=== PATIENT | female | born 1950 | race Caucasian/White ===

== ENCOUNTER → 2017-01-17 | Outpatient (CLI) | payer OTHER ==
--- NOTE | 2017-01-18 09:09 | MM ---
Reason for exam: screening (asymptomatic). Last mammogram was performed 1 year and 1 month ago. History: Patient is postmenopausal. Physical Findings: A clinical breast exam by your physician is recommended on an annual basis and results should be correlated with mammographic findings. MG Screening Mammo w CAD Bilateral CC and MLO view(s) were taken. Prior study comparison: December 07, 2015, bilateral MG screening mammo w CAD. November 25, 2014, bilateral MG screening mammo w CAD. There are scattered fibroglandular densities. There is no discrete abnormality. ASSESSMENT: Negative, BI-RAD 1 RECOMMENDATION: Routine screening mammogram of both breasts in 1 year.
== END ==
LOC: RADMAMWWP 07:25
PROVIDERS: ATTEND Family Medicine
DX: Z12.31 Encounter for screening mammogram for malignant neoplasm of breast (principal)

== ENCOUNTER → 2019-02-05 | Outpatient (CLI) | payer OTHER, MEDICARE ==
--- NOTE | 2019-02-06 11:36 | MM ---
Reason for exam: screening (asymptomatic). Last mammogram was performed 1 year ago. History: Patient is postmenopausal. Took hormonal contraceptives for 4 years. Physical Findings: A clinical breast exam by your physician is recommended on an annual basis and results should be correlated with mammographic findings. MG Screening Mammo w CAD Bilateral CC and MLO view(s) were taken. Prior study comparison: January 28, 2018, bilateral MG screening mammo w CAD. January 17, 2017, bilateral MG screening mammo w CAD. The breast tissue is heterogeneously dense. This may lower the sensitivity of mammography. There is no discrete abnormality. No significant changes when compared with prior studies. ASSESSMENT: Negative, BI-RAD 1 RECOMMENDATION: Routine screening mammogram of both breasts in 1 year.
== END | disposition home or self-care (01) ==
LOC: RADMAMWWP 10:10
PROVIDERS: ATTEND Family Medicine
DX: Z12.31 Encounter for screening mammogram for malignant neoplasm of breast (principal)
CPT/HCPCS: 77067

== ENCOUNTER → 2020-03-02 | Outpatient (CLI) | payer OTHER, MEDICARE ==
--- NOTE | 2020-03-04 12:05 | MM ---
Reason for exam: screening (asymptomatic). Last mammogram was performed 1 year and 1 month ago. History: Patient is postmenopausal. Took hormonal contraceptives for 4 years. Physical Findings: A clinical breast exam by your physician is recommended on an annual basis and results should be correlated with mammographic findings. MG Screening Mammo w CAD Bilateral CC and MLO view(s) were taken. Prior study comparison: February 05, 2019, bilateral MG screening mammo w CAD. January 28, 2018, bilateral MG screening mammo w CAD. There are scattered fibroglandular densities. No significant changes when compared with prior studies. ASSESSMENT: Negative, BI-RAD 1 RECOMMENDATION: Routine screening mammogram of both breasts in 1 year.
== END | disposition home or self-care (01) ==
LOC: RADMAMWWP 11:38
PROVIDERS: ATTEND Family Medicine
DX: Z12.31 Encounter for screening mammogram for malignant neoplasm of breast (principal)
CPT/HCPCS: 77067

== ENCOUNTER 2020-07-14 12:20 | Inpatient (IN) | payer OTHER, MEDICARE ==
[2020-07-14] MEDS ORDERED: SODIUM CHLORIDE 0.9% 500 ML 500 ML IV STA (12:52)
--- NOTE | 2020-07-14 12:56 | ED ---
General Adult HPI - General Chief complaint: Recheck/Abnormal Lab/Rx Stated complaint: Hypertensive, Tachycardia Time Seen by Provider: 07/14/20 12:25 Source: patient, RN notes reviewed, old records reviewed Mode of arrival: ambulatory Limitations: no limitations - History of Present Illness Initial comments: This is a 70-year-old female who states she has been having some high blood pressure she is should she went to her medical doctor and they prescribed her Lipitor and they increased her Zestoretic however today she took her Lipitor for the first time in some tingling to her face and noticed her heart rate being fast. Patient states her heart rate was upwards of 115 she was told to come to the emergency department. Patient denies any chest pain patient denies difficulty breathing first breath but she does states she can feel palpitations. Patient denies any headache patient denies numbness weakness per patient denies abdominal pain patient denies nausea vomiting diarrhea. Patient denies any swelling to legs or calf tenderness. Patient states the palpitations come and go. While I was in the room the patient's heart rate went up to 165 for about 10 seconds and then subsided and it went up to 155 and subsided quickly. - Related Data Home Medications Medication Instructions Recorded Confirmed Aspirin EC [Ecotrin Low Dose] 81 mg PO DAILY 07/14/20 07/14/20 Labetalol HCl 200 mg PO DAILY 07/14/20 07/14/20 Lisinopril-Hctz 20-25 mg 1 tab PO DAILY 07/14/20 07/14/20 [Zestoretic 20-25] Multivitamins, Thera [Multivitamin 1 tab PO DAILY 07/14/20 07/14/20 (formulary)] Allergies Allergy/AdvReac Type Severity Reaction Status Date / Time Fwpcjir-Aid-Djx Reductase AdvReac Unknown Verified 07/14/20 14:33 Inhibitor Review of Systems ROS Statement: Those systems with pertinent positive or pertinent negative responses have been documented in the HPI. ROS Other: All systems not noted in ROS Statement are negative. Past Medical History Past Medical History: Hypertension History of Any Multi-Drug Resistant Organisms: None Reported Past Surgical History: No Surgical Hx Reported Past Psychological History: No Psychological Hx Reported Smoking Status: Never smoker Past Alcohol Use History: Occasional General Exam - General Exam Comments Initial Comments: GENERAL: Patient is well-developed and well-nourished. Patient is nontoxic and well-hy drated and is in mild distress. ENT: Neck is soft and supple. No significant lymphadenopathy is noted. Oropharynx is clear. Moist mucous membranes. Neck has full range of motion without eliciting any pain. EYES: The sclera were anicteric and conjunctiva were pink and moist. Extraocular movements were intact and pupils were equal round and reactive to light. Eyelids were unremarkable. PULMONARY: Unlabored respirations. Good breath sounds bilaterally. No audible rales rhonchi or wheezing was noted. CARDIOVASCULAR: There is a regular rate and rhythm without any murmurs gallops or rubs. ABDOMEN: Soft and nontender with normal bowel sounds. SKIN: Skin is clear with no lesions or rashes and otherwise unremarkable. NEUROLOGIC: Patient is alert and oriented x3. Cranial nerves II through XII are grossly intact. Motor and sensory are also intact. Normal speech, volume and content. Symmetrical smile. MUSCULOSKELETAL: Normal extremities with adequate strength and full range of motion. No lower extremity swelling or edema. No calf tenderness. LYMPHATICS: No significant lymphadenopathy is noted PSYCHIATRIC: Normal psychiatric evaluation. Limitations: no limitations Course Vital Signs 07/14/20 07/14/20 07/14/20 12:25 14:53 15:42 Temperature 98.4 F 98.1 F 98.1 F Pulse Rate 125 H 74 76 Respiratory 20 16 16 Rate Blood Pressure 177/101 160/94 136/86 O2 Sat by Pulse 98 98 98 Oximetry Medical Decision Making - Medical Decision Making EKG shows normal sinus rhythm at 85 bpm OH interval 166 dresses 82 QT interval 364 QTC of 433 per patient's EKG shows no ST segment elevation or depression. Second EKG read G was done with the patient's heart rate was up over 150 beats a minute it showed initially sinus rhythm which converted quickly to what appears to be a possible flutter rhythm at 150 beats 260 beats a minute QRS is 78 QT interval 06 QTC is 493. Patient's EKG shows no ST segment elevation or depression. Patient's heart rate would go up to 100 5260 beats a minute and it appeared to be atrial flutter/started the patient a Cardizem drip and give the patient a 5 mg Cardizem bolus. I also placed the patient heparin. I spoke with Dr. Olivo he agreed to admit the patient admitted the patient I wrote admitting orders I consult cardiology - Lab Data Result diagrams: 07/14/20 13:31 07/14/20 13:31 Lab Results 07/14/20 07/14/20 07/14/20 Range/Units 13:31 13:31 13:31 WBC 9.2 (3.8-10.6) k/uL RBC 5.27 (3.80-5.40) m/uL Hgb 16.9 H (11.4-16.0) gm/dL Hct 48.5 H (34.0-46.0) % MCV 92.0 (80.0-100.0) fL MCH 32.0 (25.0-35.0) pg MCHC 34.8 (31.0-37.0) g/dL RDW 12.3 (11.5-15.5) % Plt Count 282 (150-450) k/uL MPV 7.6 Neutrophils % 72 % Lymphocytes % 19 % Monocytes % 6 % Eosinophils % 1 % Basophils % 1 % Neutrophils # 6.6 (1.3-7.7) k/uL Lymphocytes # 1.7 (1.0-4.8) k/uL Monocytes # 0.5 (0-1.0) k/uL Eosinophils # 0.1 (0-0.7) k/uL Basophils # 0.1 (0-0.2) k/uL PT 10.3 (9.0-12.0) sec INR 1.0 (<1.2) APTT 24.1 (22.0-30.0) sec Sodium (137-145) mmol/L Potassium (3.5-5.1) mmol/L Chloride (98-107) mmol/L Carbon Dioxide (22-30) mmol/L Anion Gap mmol/L BUN (7-17) mg/dL Creatinine (0.52-1.04) mg/dL Est GFR (CKD-EPI)AfAm (>60 ml/min/1.73 sqM) Est GFR (CKD-EPI)NonAf (>60 ml/min/1.73 sqM) Glucose (74-99) mg/dL Calcium (8.4-10.2) mg/dL Magnesium (1.6-2.3) mg/dL Total Bilirubin (0.2-1.3) mg/dL AST (14-36) U/L ALT (4-34) U/L Alkaline Phosphatase (38-126) U/L Troponin I (0.000-0.034) ng/mL Total Protein (6.3-8.2) g/dL Albumin (3.5-5.0) g/dL Urine Opiates Screen Not Detected (NotDetected) Ur Oxycodone Screen Not Detected (NotDetected) Urine Methadone Screen Not Detected (NotDetected) Ur Propoxyphene Screen Not Detected (NotDetected) Ur Barbiturates Screen Not Detected (NotDetected) U Tricyclic Antidepress Not Detected (NotDetected) Ur Phencyclidine Scrn Not Detected (NotDetected) Ur Amphetamines Screen Not Detected (NotDetected) U Methamphetamines Scrn Not Detected (NotDetected) U Benzodiazepines Scrn Not Detected (NotDetected) Urine Cocaine Screen Not Detected (NotDetected) U Marijuana (THC) Screen Not Detected (NotDetected) 07/14/20 07/14/20 Range/Units 13:31 13:31 WBC (3.8-10.6) k/uL RBC (3.80-5.40) m/uL Hgb (11.4-16.0) gm/dL Hct (34.0-46.0) % MCV (80.0-100.0) fL MCH (25.0-35.0) pg MCHC (31.0-37.0) g/dL RDW (11.5-15.5) % Plt Count (150-450) k/uL MPV Neutrophils % % Lymphocytes % % Monocytes % % Eosinophils % % Basophils % % Neutrophils # (1.3-7.7) k/uL Lymphocytes # (1.0-4.8) k/uL Monocytes # (0-1.0) k/uL Eosinophils # (0-0.7) k/uL Basophils # (0-0.2) k/uL PT (9.0-12.0) sec INR (<1.2) APTT (22.0-30.0) sec Sodium 139 (137-145) mmol/L Potassium 4.0 (3.5-5.1) mmol/L Chloride 102 (98-107) mmol/L Carbon Dioxide 27 (22-30) mmol/L Anion Gap 10 mmol/L BUN 20 H (7-17) mg/dL Creatinine 0.94 (0.52-1.04) mg/dL Est GFR (CKD-EPI)AfAm 72 (>60 ml/min/1.73 sqM) Est GFR (CKD-EPI)NonAf 63 (>60 ml/min/1.73 sqM) Glucose 113 H (74-99) mg/dL Calcium 10.5 H (8.4-10.2) mg/dL Magnesium 1.9 (1.6-2.3) mg/dL Total Bilirubin 0.5 (0.2-1.3) mg/dL AST 29 (14-36) U/L ALT 32 (4-34) U/L Alkaline Phosphatase 111 (38-126) U/L Troponin I <0.012 (0.000-0.034) ng/mL Total Protein 8.2 (6.3-8.2) g/dL Albumin 4.9 (3.5-5.0) g/dL Urine Opiates Screen (NotDetected) Ur Oxycodone Screen (NotDetected) Urine Methadone Screen (NotDetected) Ur Propoxyphene Screen (NotDetected) Ur Barbiturates Screen (NotDetected) U Tricyclic Antidepress (NotDetected) Ur Phencyclidine Scrn (NotDetected) Ur Amphetamines Screen (NotDetected) U Methamphetamines Scrn (NotDetected) U Benzodiazepines Scrn (NotDetected) Urine Cocaine Screen (NotDetected) U Marijuana (THC) Screen (NotDetected) Critical Care Time Critical Care Time: Yes Total Critical Care Time: 35 Disposition Clinical Impression: Atrial flutter with rapid ventricular response Disposition: ADMITTED IP TO THIS HOSP Referrals: Daryn Poole MD [Primary Care Provider] - 1-2 days Time of Disposition: 14:35
[2020-07-14 13:46] LABS: Basophils # (A) 0.1 k/uL (0-0.2); Basophils % (A) 1 %; Eosinophils # (A) 0.1 k/uL (0-0.7); Eosinophils % (A) 1 %; HCT 48.5 % (34.0-46.0); HGB 16.9 gm/dL (11.4-16.0); Lymphocytes # (A) 1.7 k/uL (1.0-4.8); Lymphocytes % (A) 19 %; MCHC 34.8 g/dL (31.0-37.0); Mean Platelet Volume 7.6; Monocytes # (A) 0.5 k/uL (0-1.0); Monocytes % (A) 6 %; Neutrophils # (A) 6.6 k/uL (1.3-7.7); Neutrophils % (A) 72 %; Platelet Count 282 k/uL (150-450); RBC 5.27 m/uL (3.80-5.40); RDW 12.3 % (11.5-15.5); WBC 9.2 k/uL (3.8-10.6)
[2020-07-14] MEDS ORDERED: DILTIAZEM DRIP BOLUS FROM BAG 1 MG SOLN IV ONE (13:46)
--- NOTE | 2020-07-14 13:51 | XR ---
EXAMINATION TYPE: XR chest 2V DATE OF EXAM: 07/14/2020 COMPARISON: NONE HISTORY: Dysrhythmia. TECHNIQUE: Frontal and lateral views of the chest are obtained. FINDINGS: There is mild chronic parenchymal changes without suspicious focal air space opacity, pleu ral effusion, or pneumothorax seen. The cardiac silhouette size is within normal limits with atheros clerotic change in aortic knob. Slight scoliotic curvature with multilevel spurring in the spine. Ove rlying EKG leads. IMPRESSION: Chronic changes without acute pulmonary process.
[2020-07-14 13:56] LABS: Albumin 4.9 g/dL (3.5-5.0); Calcium 10.5 mg/dL (8.4-10.2); Magnesium 1.9 mg/dL (1.6-2.3); Total Bilirubin 0.5 mg/dL (0.2-1.3); Total Protein 8.2 g/dL (6.3-8.2)
[2020-07-14 13:58] LABS: Partial Thromboplastin Time 24.1 sec (22.0-30.0); Prothrombin Time 10.3 sec (9.0-12.0)
[2020-07-14] MEDS ORDERED: DILTIAZEM 125 MG in SODIUM CHLORIDE 0.9% 100 ML IV SCH (14:00)
[2020-07-14 14:10] LABS: Amphetamine Screen,Urine Not Detected (NotDetected); Barbiturate Screen,Urine Not Detected (NotDetected); Benzodiazepines Screen,Urine Not Detected (NotDetected); Cocaine Screen,Urine Not Detected (NotDetected); Methadone Screen, Urine Not Detected (NotDetected); Opiate Screen,Urine Not Detected (NotDetected); Oxycodone Screen, Urine Not Detected (NotDetected); Phencyclidine Screen,Urine Not Detected (NotDetected); Tricyclic Antidepressant,Urine Not Detected (NotDetected); Urn Cannabinoid Scrn Not Detected (NotDetected)
[2020-07-14] MEDS ORDERED: HEPARIN SODIUM,PORCINE 5,000 UNIT/ML 1 ML VIAL IV ONE (14:36)
[2020-07-14] MEDS ORDERED: HEPARIN SOD,PORK IN 0.45% NACL 25,000 UNIT in 0.45% NACL 1 250ML.BAG IV SCH (14:45)
[2020-07-14 14:54] VITALS: RESP 16
[2020-07-14] MEDS ORDERED: NITROGLYCERIN SL TABS 0.4 MG TAB SUBLINGUAL PRN (16:37)
[2020-07-14] MEDS ORDERED: hydrALAZINE HCL 50 MG TAB PO STA (19:53)
[2020-07-14] MEDS ORDERED: LABETALOL 200 MG TAB PO STA (19:54)
[2020-07-14] MEDS: LISINOPRIL-HCTZ 20-25 MG 1 EACH TAB PO SCH (20:11)
[2020-07-14] MEDS ORDERED: CALCIUM CARBONATE 500 MG CHEWABLE PO PRN (23:51)
--- NOTE | 2020-07-15 00:07 | P.HPIM ---
History of Present Illness H&P Date: 07/14/20 The patient is a 62-year-old female with a PMH of hypertension and hyperlipidemia who presented to the emergency room due to palpitations. Patient reports that she had recently been seeing her primary care physician due to her uncontrolled blood pressure and that her lisinopril hydrochlorothiazide combination was dose doubled and she was also started on Lipitor. Patient notes that she took her first dose Lipitor this morning and roughly an hour later developed palpitations, facial paresthesias, and hyperventilation. The patient notes that it may have been a panic attack. She subsequently called her PMD who advised her to go to the emergency room. The patient reports that she returned to baseline shortly after and had no further symptoms. The patient does note a long-standing history of intermittent palpitations which were always self- limited. No significant family history of palpitations. She denied chest pain, shortness of breath or fever, chills, cough, nausea, vomiting, abdominal pain, diarrhea, dizziness, weakness, numbness, tingling. She underwent an extensive evaluation in the emergency room with an EKG showing a flutter at 156 bpm with chest x-ray without acute abnormalities. Laboratory evaluation revealed a hemoglobin of 16.9, troponin less than 0.02, BUN 20, creatinine 0.94, glucose 113, calcium 10.5, U tox unremarkable, and a Coronavirus PCR negative. The p atient was started on heparin and Cardizem infusions and was admitted to the medicine service for further management including cardiology evaluation. Review of Systems Pertinent positives and negatives as discussed in HPI, a complete review of systems was performed and all other systems are negative. Past Medical History Past Medical History: Hypertension History of Any Multi-Drug Resistant Organisms: None Reported Past Surgical History: No Surgical Hx Reported Past Anesthesia/Blood Transfusion Reactions: Unable to Obtain Additional Past Anesthesia/Blood Transfusion Reaction / Comment(s): never had surgical procedures Past Psychological History: No Psychological Hx Reported Smoking Status: Never smoker Past Alcohol Use History: Occasional - Past Family History Father Family Medical History: Myocardial Infarction (NH) Mother Family Medical History: Myocardial Infarction (NH) Medications and Allergies Home Medications Medication Instructions Recorded Confirmed Type Aspirin EC [Ecotrin Low Dose] 81 mg PO DAILY 07/14/20 07/14/20 History Labetalol HCl 200 mg PO DAILY 07/14/20 07/14/20 History Lisinopril-Hctz 20-25 mg 1 tab PO DAILY 07/14/20 07/14/20 History [Zestoretic 20-25] Multivitamins, Thera [Multivitamin 1 tab PO DAILY 07/14/20 07/14/20 History (formulary)] Allergies Allergy/AdvReac Type Severity Reaction Status Date / Time Mzfxjsa-Wun-Rjd Reductase AdvReac Unknown Verified 07/14/20 14:33 Inhibitor Physical Exam Vitals: Vital Signs Temp Pulse Pulse Resp BP BP Pulse Ox 07/14/20 21:15 105/63 07/14/20 20:00 97.9 F 78 16 149/98 96 07/14/20 19:14 80 189/76 07/14/20 17:57 97.4 F L 75 16 165/100 98 07/14/20 17:34 98.1 F 73 16 127/84 98 07/14/20 15:42 98.1 F 76 16 136/86 98 07/14/20 14:53 98.1 F 74 16 160/94 98 07/14/20 12:25 98.4 F 125 H 20 177/101 98 Intake and Output 07/14/20 07/14/20 07/15/20 14:59 22:59 06:59 Other: Voiding Method Toilet # Voids 1 Weight 86.183 kg 86.183 kg General: non toxic, no distress, appears at stated age, obese Derm: no unusual rashes/lesions no unusual ecchymoses, warm, dry Head: atraumatic, normocephalic, symmetric Eyes: EOMI, no lid lag, anicteric sclera, pupils equal round reactive to light ENT: Nose and ears atraumatic, no thrush, no pharyngeal erythema Neck: No thyromegaly, no cervical lymphadenopathy, trachea midline, supple Mouth: no lip lesion, mucus membranes moist Cardiovascular: S1S2 reg, no murmur, positive posterior tibial pulse bilateral, no edema, capillary refill less than 2 seconds Lungs: CTA bilateral, no rhonchi, no rales , no accessory muscle use Abdominal: soft, nontender to palpation, no guarding, no appreciable organomegaly, normal bowel sounds Ext: no gross muscle atrophy, muscle strength 5 out of 5 in all 4 extremities grossly, no contractures, Neuro: CN II-XI grossly intact, light touch intact all 4 extremities, finger to nose within normal limits, Psych: Alert, oriented, appropriate affect Results CBC & Chem 7: 07/14/20 13:31 07/14/20 13:31 Labs: Abnormal Lab Results - Last 24 Hours (Table) 07/14/20 07/14/20 07/14/20 Range/Units 13:31 13:31 20:47 Hgb 16.9 H (11.4-16.0) gm/dL Hct 48.5 H (34.0-46.0) % APTT 46.4 H (22.0-30.0) sec BUN 20 H (7-17) mg/dL Glucose 113 H (74-99) mg/dL Calcium 10.5 H (8.4-10.2) mg/dL Assessment and Plan Plan: Newly diagnosed Paroxysmal A. fib -Continue with Cardizem and heparin infusion -Echocardiogram -Cardiology consult -Cardiac monitoring -Check TSH -Patient will need insurance authorization for oral anticoagulant Facial tingling, palpitations following statin use -Likely A. fib along with possible panic attack -Low suspicion for true allergic reaction -Hold Statin for now pending cardio eval Uncontrolled hypertension -Continue with home medications for now since patient never took her labetalol DVT prophylaxis -Heparin infusion The patient is admitted with an anticipated greater than 2 midnight stay for evaluation of Afib CODE STATUS: Full Code Discussed with: Patient Anticipated discharge date: 2-[address]: Home A total of 35 minutes was spent on the care of this complex patient more than 50% of the time was spent in counseling and care coordination.
[2020-07-15] MEDS ORDERED: ASPIRIN 325 MG TAB PO SCH (09:00)
[2020-07-15] MEDS ORDERED: LABETALOL 200 MG TAB PO SCH (09:00)
[2020-07-15] MEDS ORDERED: METOPROLOL TARTRATE 25 MG TAB PO SCH (09:15)
[2020-07-15] MEDS ORDERED: LISINOPRIL-HCTZ 10-12.5 MG 1 EACH TAB PO SCH (09:15)
[2020-07-15] MEDS: LISINOPRIL-HCTZ 20-25 MG 1 EACH TAB PO SCH (09:29)
--- NOTE | 2020-07-15 10:04 | P.CRDCN ---
History of Present Illness History of present illness: HISTORY OF PRESENTING ILLNESS This is a pleasant 70-year-old female past medical history significant for hypertension. She denies prior history of coronary artery disease and does not follow in the office with a physician/allergy/immunology. We have been asked to see in consultation for atrial fibrillation. She has been following with her primary care physician for the previous one week secondary to uncontrolled hypertension. She had been on lisinopril 10 mg for approximately 10 years. She was at the ENT and blood pressure was noted to be 170/100. She followed up with her PCP and her dose of lisinopril was increased. She continued to have intermittent episodes of a full sensation in her head and her blood pressure continued to be elevated at home prompting her to go to urgent care. While at urgent care she was having episodes of palpitations and tachycardia. Her lisinopril was adjusted further by adding hydrochlorothiazide and she was added on labetalol. At that point it was recommended she come to the hospital for further evaluation. Upon arrival to the emergency department she was noted to be hypertensive at 177/101. Initial EKG revealed sinus mechanism with heart rate of 85. Subsequently thereafter she had an episode of tachycardia that was captured on an EKG with heart rate briefly in the 150s. 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 She was initiated on IV heparin and IV Cardizem. Through the night she had episodes of bradycardia and hypotension. Cardizem infusion was discontinued. Currently blood pressure is 122/71 heart rate 67 afebrile maintaining oxygen saturation on room air. She denies having episodes of chest discomfort, shortness of breath or dizziness. She is currently sitting up resting comfortably in bed in no acute distress. She is tearful as she states her is currently out of town and this does cause her severe anxiety being home alone. Chest x-ray is negative for an acute cardiopulmonary process. Laboratory data reviewed, WBC 9.2, hemoglobin 16.9, platelets 282, sodium 139, potassium 4.0, creatinine 0.94, magnesium 1.9, cardiac enzymes negative 3, TSH 4.54, LDL 147, HDL 47 and total cholesterol 214. REVIEW OF SYSTEMS At the time of my exam: CONSTITUTIONAL: Denies fever or chills. CARDIOVASCULAR: Denies chest pain, shortness of breath, orthopnea, PND or palpitations. RESPIRATORY: Denies cough. GASTROINTESTINAL: Denies abdominal pain, diarrhea, constipation, nausea or vomiting. MUSCULOSKELETAL: Denies myalgias. NEUROLOGIC: Denies numbness, tingling, headacbe or weakness. ENDOCRINE: Denies fatigue, weight change, polydipsia or polyurina. GENITOURINARY: Denies burning, hematuria or urgency with micturation. HEMATOLOGIC: Denies history of anemia or bleeding. PHYSICAL EXAMINATION Blood pressure 122/71 heart rate 67 afebrile and maintaining oxygen saturation on room air. CONSTITUTIONAL: No apparent distress. HEENT: Head is normocephalic. Pupils are equal, round. Sclerae anicteric. Mucous membranes of the mouth are moist. No JVD. No carotid bruit. CHEST EXAMINATION: Lungs are clear to auscultation. No chest wall tenderness is noted on palpation or with deep breathing. HEART EXAMINATION: Regular rate and rhythm. S1, S2 heard. No murmurs, gallops or rub. ABDOMEN: Soft, nontender. Positive bowel sounds. EXTREMITIES: 2+ peripheral pulses, no lower extremity edema and no calf tenderness. NEUROLOGIC EXAMINATION: Patient is awake, alert and oriented x3. 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 PLAN EKG and telemetry tracings reviewed, there is no evidence of atrial fibrillation. EKG from the emergency department reveals AV node reentry sinus tachycardia. Discontinue heparin infusion. Discontinue labetalol. Initiate Lopressor 25 mg twice a day. Adjust lisinopril to 10 mg daily with hydrochlorothiazide 12.5 mg daily. Further blood pressure management and adjustments can be made in the outpatient setting. When she follows Dr. Jacques in the office he can consider outpatient event monitoring if she continues to have ongoing palpitations. Echocardiogram has been ordered and will be reviewed. Thank you kindly for this consultation. Nurse Practitioner note has been reviewed, I agree with a documented findings and plan of care. Patient was seen and examined. Past Medical History Past Medical History: Hypertension History of Any Multi-Drug Resistant Organisms: None Reported Past Surgical History: No Surgical Hx Reported Past Anesthesia/Blood Transfusion Reactions: Unable to Obtain Additional Past Anesthesia/Blood Transfusion Reaction / Comment(s): never had surgical procedures Past Psychological History: No Psychological Hx Reported Smoking Status: Never smoker Past Alcohol Use History: Occasional - Past Family History Father Family Medical History: Myocardial Infarction ([place]) Mother Family Medical History: Myocardial Infarction ([place]) Medications and Allergies Home Medications Medication Instructions Recorded Confirmed Type Aspirin EC [Ecotrin Low Dose] 81 mg PO DAILY 07/14/20 07/14/20 History Labetalol HCl 200 mg PO DAILY 07/14/20 07/14/20 History Lisinopril-Hctz 20-25 mg 1 tab PO DAILY 07/14/20 07/14/20 History [Zestoretic 20-25] Multivitamins, Thera [Multivitamin 1 tab PO DAILY 07/14/20 07/14/20 History (formulary)] Allergies Allergy/AdvReac Type Severity Reaction Status Date / Time Earwpty-Vqb-Rrp Reductase AdvReac Unknown Verified 07/14/20 14:33 Inhibitor Physical Exam Vitals: Vital Signs Temp Pulse Pulse Resp BP BP Pulse Ox 07/15/20 08:00 98.7 F 67 16 122/71 96 07/15/20 03:44 98.0 F 57 L 16 98/55 97 07/15/20 02:00 16 07/15/20 00:00 98.1 F 62 16 107/63 97 07/14/20 21:15 105/63 07/14/20 20:00 97.9 F 78 16 149/98 96 07/14/20 19:14 80 189/76 07/14/20 17:57 97.4 F L 75 16 165/100 98 07/14/20 17:34 98.1 F 73 16 127/84 98 07/14/20 15:42 98.1 F 76 16 136/86 98 07/14/20 14:53 98.1 F 74 16 160/94 98 07/14/20 12:25 98.4 F 125 H 20 177/101 98 Intake and Output 07/14/20 07/15/20 07/15/20 22:59 06:59 14:59 Intake Total 63.25 Balance 63.25 Intake: Intake, IV Titration 63.25 Amount Diltiazem 125 mg In 63.25 Sodium Chloride 0.9% 100 ml @ 5 MG/HR 5 mls/hr IV .Q24H [facility] Rx#:[id number] Other: Voiding Method Toilet Toilet # Voids 1 2 Weight 86.183 kg 85.9 kg Results 07/14/20 13:31 07/14/20 13:31 Cardiac Enzymes 07/14/20 07/14/20 07/14/20 Range/Units 13:31 13:31 17:37 AST 29 (14-36) U/L Troponin I <0.012 <0.012 (0.000-0.034) ng/mL 07/14/20 Range/Units 20:47 AST (14-36) U/L Troponin I <0.012 (0.000-0.034) ng/mL Coagulation 07/14/20 07/14/20 07/15/20 Range/Units 13:31 20:47 06:46 PT 10.3 (9.0-12.0) sec APTT 24.1 46.4 H 60.6 H (22.0-30.0) sec Lipids 07/15/20 Range/Units 06:46 Triglycerides 98 (<150) mg/dL Cholesterol 214 H (<200) mg/dL HDL Cholesterol 47 (40-60) mg/dL CBC 07/14/20 Range/Units 13:31 WBC 9.2 (3.8-10.6) k/uL RBC 5.27 (3.80-5.40) m/uL Hgb 16.9 H (11.4-16.0) gm/dL Hct 48.5 H (34.0-46.0) % Plt Count 282 (150-450) k/uL Comprehensive Metabolic Panel 07/14/20 Range/Units 13:31 Sodium 139 (137-145) mmol/L Potassium 4.0 (3.5-5.1) mmol/L Chloride 102 (98-107) mmol/L Carbon Dioxide 27 (22-30) mmol/L BUN 20 H (7-17) mg/dL Creatinine 0.94 (0.52-1.04) mg/dL Glucose 113 H (74-99) mg/dL Calcium 10.5 H (8.4-10.2) mg/dL AST 29 (14-36) U/L ALT 32 (4-34) U/L Alkaline Phosphatase 111 (38-126) U/L Total Protein 8.2 (6.3-8.2) g/dL Albumin 4.9 (3.5-5.0) g/dL Current Medications Generic Name Dose Route Start Last Admin Trade Name Freq PRN Reason Stop Dose Admin Aspirin 81 mg 07/16/20 09:00 Aspirin 81 Mg PO DAILY [facility] Calcium Carbonate/Glycine 1,000 mg 07/14/20 23:51 07/15/20 00:01 Calcium Carbonate 500 Mg Chewable PO 1,000 mg TID PRN Administration Heartburn Lisinopril/HCTZ 1 each 07/15/20 09:15 Lisinopril-Hctz 10-12.5 Mg 1 Each Tab PO DAILY [facility] Metoprolol Tartrate 25 mg 07/15/20 09:15 Metoprolol Tartrate 25 Mg Tab PO BID [facility] Nitroglycerin 0.4 mg 07/14/20 16:37 Nitroglycerin Sl Tabs 0.4 Mg Tab SUBLINGUAL Q5M PRN Chest Pain Intake and Output 07/14/20 07/15/20 07/15/20 22:59 06:59 14:59 Intake Total 63.25 Balance 63.25 Intake: Intake, IV Titration 63.25 Amount Diltiazem 125 mg In 63.25 Sodium Chloride 0.9% 100 ml @ 5 MG/HR 5 mls/hr IV .Q24H [facility] Rx#:[id number] Other: Voiding Method Toilet Toilet # Voids 1 2 Weight 86.183 kg 85.9 kg 07/14/20 13:31 07/14/20 13:31
[2020-07-15 11:03] VITALS: BP 117/58; PULSE 65; TEMP 98
--- NOTE | 2020-07-15 13:54 | P.DS ---
Providers Date of admission: 07/14/20 16:38 Expected date of discharge: 07/15/20 Attending physician: Kandi Hunter DO Consults: 07/14/20 16:38 Consult Physician Urgent Consulting Provider: [facility] Consult Reason/Comments: A. fib with rapid ventricular response Do you want consulting provider notified?: Yes Primary care physician: Daryn Poole MD Hospital Course: This is a 70-year-old female with past medical history significant for essential hypertension who presented to the emergency room with palpitation. Patient was evaluated in the ER and was thought to have atrial fibrillation with rapid ventricular response. Heart rate was up to 150. Patient was started on IV Cardizem and IV heparin drip and admitted to the hospital for observation. She was seen and evaluated by cardiology. Twelve-lead EKG and telemetry rhythm strips reviewed by cardiology and her rhythm was deemed to be AV mustapha reentry tachycardia and not A. fib. Patient was started on metoprolol and her heart rate was well controlled. Echocardiogram done and reviewed by cardiology was reported normal to me. Thyroid function test was normal. She was cleared by cardiology for discharge home. Her lisinopril/hydrochlorothiazide dose was adjusted to 10/12.5 mg daily to avoid hypotension. She will be discharged home in a stable condition. General: The patient is awake and alert, in no distress Eye: there is normal conjunctiva bilaterally. Neck: The neck is supple, there is no JVD. Cardiovascular: Normal S1-S2, no S3-S4, no murmurs. Respiratory: Lungs clear to auscultation bilaterally Gastrointestinal: Abdomen is soft, nontender Musculoskeletal: There is no pedal edema. Neurological:. Speech is normal. Skin: Skin is warm and dry Patient will be discharged home in a stable condition. For further details about this hospitalization please refer to the electronic chart. Time spent on discharge > 30 minutes including counseling and coordination of care Plan - Discharge Summary Discharge Rx Participant: Yes New Discharge Prescriptions: New Metoprolol Tartrate [Lopressor] 25 mg PO BID #180 tab Lisinopril-Hctz 10-12.5 mg [Zestoretic 10-12.5] 1 each PO DAILY #90 tab Continue Aspirin EC [Ecotrin Low Dose] 81 mg PO DAILY Multivitamins, Thera [Multivitamin (formulary)] 1 tab PO DAILY Discontinued Labetalol HCl 200 mg PO DAILY Lisinopril-Hctz 20-25 mg [Zestoretic 20-25] 1 tab PO DAILY Discharge Medication List Aspirin EC [Ecotrin Low Dose] 81 mg PO DAILY 07/14/20 [History] Multivitamins, Thera [Multivitamin (formulary)] 1 tab PO DAILY 07/14/20 [History] Lisinopril-Hctz 10-12.5 mg [Zestoretic 10-12.5] 1 each PO DAILY #90 tab 07/15/20 [Rx] Metoprolol Tartrate [Lopressor] 25 mg PO BID #180 tab 07/15/20 [Rx] Follow up Appointment(s)/Referral(s): Collette Jacques MD [STAFF PHYSICIAN] - 2 Weeks (Patient requesting to call & schedule own appointment. ) Daryn Poole MD [Primary Care Provider] - 07/19/20 2:45 pm Patient Instructions/Handouts: Atrial Tachycardia (DC) Discharge Disposition: HOME SELF-CARE
--- NOTE | 2020-07-15 14:33 | ECHOF ---
Referral Reason:Afib MEASUREMENTS -------- HEIGHT: 162.6 cm WEIGHT: 86.2 kg BP: 98/55 RVIDd: 2.7 cm (< 3.3) IVSd: 1.2 cm (0.6 - 1.1) LVIDd: 3.8 cm (3.9 - 5.3) LVPWd: 1.1 cm (0.6 - 1.1) LAESV Index (A-L): 14.10 ml/m Ao Diam: 2.3 cm (2.0 - 3.7) AV Cusp: 1.5 cm (1.5 - 2.6) MV EXCURSION: 17.002 mm (> 18.000) MV EF SLOPE: 79 mm/s (70 - 150) EPSS: 0.3 cm MV E Shun: 0.81 m/s MV DecT: 279 ms MV A Shun: 1.03 m/s MV E/A Ratio: 0.79 FINDINGS -------- Sinus rhythm. This was a technically adequate study. The left ventricular size is normal. There is borderline concentric left ventricular hypertrophy. Overall left ventricular systolic function is normal with, an EF between 55 - 60 %. The right ventricle is normal in size. Normal LA size by volume 22+/-6 ml/m2. The right atrial size is normal. Interatrial and interventricular septum intact. The aortic valve is trileaflet, and appears structurally normal. No aortic stenosis or regurgitation. The mitral valve is normal. There is trace to mild mitral regurgitation. The tricuspid valve appears structurally normal. Trace tricuspid regurgitation present. There is no pulmonic regurgitation present. The aortic root size is normal. Normal inferior vena cava with normal inspiratory collapse consistent with estimated right atrial pre ssure of 5 mmHg. There is no pericardial effusion. CONCLUSIONS -------- 1. There is borderline concentric left ventricular hypertrophy. 2. Overall left ventricular systolic function is normal with, an EF between 55 - 60 %. 3. The right ventricle is normal in size. 4. Normal LA size by volume 22+/-6 ml/m2. 5. The aortic valve is trileaflet, and appears structurally normal. No aortic stenosis or regurgitati on. 6. There is trace to mild mitral regurgitation. 7. Trace tricuspid regurgitation present. 8. There is no pericardial effusion. INSOLE PRESSER: Gabbi Butt RDCS
[2020-07-16] MEDS ORDERED: ASPIRIN 81 MG PO SCH (09:00)
== END 2020-07-15 14:40 | disposition home or self-care (01) | DRG 310 ==
LOC: EC 12:20 → 3SCARD 16:38
PROVIDERS: ADMIT Internal Medicine; ATTEND Internal Medicine
DX: I47.1 Supraventricular tachycardia (principal); I10 Essential (primary) hypertension; E78.5 Hyperlipidemia, unspecified; Z20.822 Contact with and (suspected) exposure to COVID-19; Z79.82 Long term (current) use of aspirin; Z79.899 Other long term (current) drug therapy; Z82.49 Family history of ischemic heart disease and other diseases of the circulatory system; Z88.8 Allergy status to other drugs, medicaments and biological substances
CPT/HCPCS: 36415; 71046; 80053; 80061; 80306; 83735; 84443; 84484; 85025; 85610; 85730; 87635; 93005; 93306; 96365; 96366; 96368; 96376; 99291

== ENCOUNTER → 2021-04-24 | Outpatient (CLI) | payer MEDICARE ==
--- NOTE | 2021-04-25 14:20 | MM ---
Reason for exam: screening (asymptomatic). Last mammogram was performed 1 year and 2 months ago. History: Patient is postmenopausal. Took hormonal contraceptives for 4 years. Physical Findings: A clinical breast exam by your physician is recommended on an annual basis and results should be correlated with mammographic findings. MG Screening Mammo w CAD Bilateral CC and MLO view(s) were taken. Prior study comparison: March 02, 2020, bilateral MG screening mammo w CAD. February 05, 2019, bilateral MG screening mammo w CAD. There are scattered fibroglandular densities. No significant changes when compared with prior studies. ASSESSMENT: Benign, BI-RAD 2 RECOMMENDATION: Routine screening mammogram of both breasts in 1 year.
== END | disposition home or self-care (01) ==
LOC: RADMAMWWP 14:59
PROVIDERS: ATTEND Family Medicine
DX: Z12.39 Encounter for other screening for malignant neoplasm of breast (principal)
CPT/HCPCS: 77067

== ENCOUNTER 2022-08-20 21:42 | Emergency (ER) | payer MEDICARE ==
[2022-08-20 22:03] VITALS: TEMP 98.2
[2022-08-20 22:06] LABS: Glucose,Whole Blood 91 mg/dL (70-110)
[2022-08-21 03:11] VITALS: RESP 16
[2022-08-21] MEDS ORDERED: hydrALAZINE HCL 20 MG/ML 1 ML VIAL IVP STA (04:28)
[2022-08-21 05:13] VITALS: BP 173/101; PULSE 87
--- NOTE | 2022-08-21 05:21 | ED ---
General Adult HPI - General Chief complaint: Recheck/Abnormal Lab/Rx Stated complaint: High BP Time Seen by Provider: 08/21/22 03:54 Source: patient Mode of arrival: ambulatory Limitations: no limitations - History of Present Illness Initial comments: This is a 72-year-old female with a past medical history including hypertension presents emergency department for increased blood pressure. The patient stated that she noted her blood pressure was continuously elevated despite following up with her primary care physician one week ago. The patient stated that she wanted to come to the emergency department for further evaluation can she had a brief episode of numbness on the left side of her face and a singular spot. The patient stated this lasted approximately 10 minutes. The patient also stated that this happened in a similar fashion when she was started on a statin and did restart this statin and had once again hypertension. The patient denied any headache, lightheadedness, chest pain or shortness of breath. The patient was resting in bed comfortable B. - Related Data Home Medications Medication Instructions Recorded Confirmed Aspirin EC [Ecotrin Low Dose] 81 mg PO DAILY 07/14/20 07/14/20 Multivitamins, Thera [Multivitamin 1 tab PO DAILY 07/14/20 07/14/20 (formulary)] Previous Rx's Medication Instructions Recorded Lisinopril-Hctz 10-12.5 mg 1 each PO DAILY #90 tab 07/15/20 [Zestoretic 10-12.5] Metoprolol Tartrate [Lopressor] 25 mg PO BID #180 tab 07/15/20 Allergies Allergy/AdvReac Type Severity Reaction Status Date / Time Fgofwrb-PMS-AnE Reductase AdvReac Unknown Verified 08/20/22 22:02 Inhibitor [Oajcdas-Tip-Zzi Reductase Inhibitor] Review of Systems ROS Statement: Those systems with pertinent positive or pertinent negative responses have been documented in the HPI. ROS Other: All systems not noted in ROS Statement are negative. Past Medical History Past Medical History: Hypertension History of Any Multi-Drug Resistant Organisms: None Reported Past Surgical History: No Surgical Hx Reported Past Anesthesia/Blood Transfusion Reactions: Unable to Obtain Additional Past Anesthesia/Blood Transfusion Reaction / Comment(s): never had surgical procedures Past Psychological History: No Psychological Hx Reported Smoking Status: Never smoker Past Alcohol Use History: Occasional - Past Family History Father Family Medical History: Myocardial Infarction ([place]) Mother Family Medical History: Myocardial Infarction ([place]) General Exam Limitations: no limitations General appearance: alert, in no apparent distress Head exam: Present: atraumatic, normocephalic, normal inspection Eye exam: Present: normal appearance, PERRL Pupils: Present: normal accommodation ENT exam: Present: normal exam, normal oropharynx, mucous membranes moist Neck exam: Present: normal inspection, full ROM Respiratory exam: Present: normal lung sounds bilaterally Cardiovascular Exam: Present: regular rate, normal rhythm, normal heart sounds GI/Abdominal exam: Present: soft, normal bowel sounds Extremities exam: Present: normal inspection, full ROM Back exam: Present: normal inspection, full ROM Neurological exam: Present: alert, oriented X3, CN II-XII intact Psychiatric exam: Present: normal affect, normal mood Skin exam: Present: warm, dry Course Vital Signs 08/20/22 08/21/22 08/21/22 21:57 03:10 03:34 Temperature 98.2 F Pulse Rate 79 84 78 Respiratory 18 16 16 Rate Blood Pressure 205/122 209/125 209/104 O2 Sat by Pulse 96 97 98 Oximetry 08/21/22 08/21/22 04:00 05:00 Temperature Pulse Rate 87 Respiratory 16 Rate Blood Pressure 209/104 173/101 O2 Sat by Pulse 97 96 Oximetry EKG Findings - EKG Comments: EKG Findings:: In EKG was obtained and was interpreted by myself showing a rate of 69, ID interval 174, QRS duration of 81 and QTC of 413. This EKG showed a normal sinus rhythm with no ST segment elevation or depression noted. Medical Decision Making - Medical Decision Making Was pt. sent in by a medical professional or institution (, PA, [facility], urgent care, hospital, or [facility]...) When possible be specific @ -No Did you speak to anyone other than the patient for history (EMS, parent, family, police, friend...)? What history was obtained from this source @ -Yes, patient's Did you review nursing and triage notes (agree or disagree)? Why? @ -I reviewed and agree with nursing and triage notes Were old charts reviewed (outside hosp., previous admission, EMS record, old EKG, old radiological studies, urgent care reports/EKG's, [facility] records)? Report findings @ -No old charts were reviewed Differential Diagnosis (chest pain, altered mental status, abdominal pain women, abdominal pain men, vaginal bleeding, weakness, fever, dyspnea, syncope, headache, dizziness, GI bleed, back pain, seizure, CVA, palpatations, mental health)? @ -Asymptomatic hypertension, ACS, pneumonia EKG interpreted by me (3pts min.). @ -As above X-rays interpreted by me (1pt min.). @ -None done CT interpreted by me (1pt min.). @ -None done U/S interpreted by me (1pt. min.). @ -None done What testing was considered but not performed or refused? (CT, X-rays, U/S, labs)? Why? @ -None What meds were considered but not given or refused? Why? @ -None Did you discuss the management of the patient with other professionals (professionals i.e. , PA, [facility] [facility], lab, RT, psych nurse, social media project manager, province archivist, teacher, targeting acquisition officer, case checker)? Give summary @ -No Was smoking cessation discussed for >3mins.? @ -No Was critical care preformed (if so, how long)? @ -No Were there social determinants of health that impacted care today? How? (Homelessness, low income, unemployed, alcoholism, drug addiction, transportation, low edu. Level, literacy, decrease access to med. care, long-term, rehab)? @ -No Was there de-escalation of care discussed even if they declined (Discuss DNR or withdrawal of care, Hospice)? DNR status @ -No What co-morbidities impacted this encounter? (DM, HTN, Smoking, COPD, CAD, Cancer, CVA, ARF, Chemo, Hep., AIDS, mental health diagnosis, sleep apnea, morbid obesity)? @ -Hypertension Was patient admitted / discharged? Hospital course, mention meds given and route, prescriptions, significant lab abnormalities, going to OR and other pertinent info. @ -The patient was seen and evaluated emergency department. Physical exam, the patient was resting in bed without any acute distress. Vital signs admission were stable however the patient was hypertensive. Because the patient was asymptomatic, no further workup was obtained at this time. The patient had a heart rate around 60-70 therefore the patient was given a dose of hydralazine IV. On reevaluation, the patient's blood pressure did decrease to around 25% and the patient remained asymptomatic. The patient was deemed stable for discharge and told to follow-up with her primary care physician for further workup and evaluation. The patient was agreeable to this and all of her questions were answered. The patient was discharged home in stable condition. Undiagnosed new problem with uncertain prognosis? @ -No Drug Therapy requiring intensive monitoring for toxicity (Heparin, Nitro, Insuli n, Cardizem)? @ -No Were any procedures done? @ -No Diagnosis/symptom? @ -Asymptomatic hypertension Acute, or Chronic, or Acute on Chronic? @ -Acute on chronic Uncomplicated (without systemic symptoms) or Complicated (systemic symptoms)? @ -Uncomplicated Side effects of treatment? @ -No Exacerbation, Progression, or Severe Exacerbation? @ -No Poses a threat to life or bodily function? How? (Chest pain, [place], [place], pneumonia, PE, COPD, DKA, ARF, appy, cholecystitis, CVA, Diverticulitis, Homicidal, Suicidal, threat to staff... and all critical care pts) @ -No - Lab Data Lab Results 08/20/22 Range/Units 22:04 POC Glucose (mg/dL) 91 (70-110) mg/dL POC Glu Rn Advanced Brain Fernandez Disposition Clinical Impression: Asymptomatic hypertension Disposition: HOME SELF-CARE Condition: Stable Is patient prescribed a controlled substance at d/c from ED?: No Referrals: Ethan Mariee MD [Primary Care Provider] - 1-2 days Time of Disposition: 05:00
== END 2022-08-21 05:41 | disposition home or self-care (01) ==
LOC: EC 21:42
DX: I10 Essential (primary) hypertension (principal); Z79.82 Long term (current) use of aspirin; Z88.8 Allergy status to other drugs, medicaments and biological substances
CPT/HCPCS: 96374 ×2; 99284 ×2; 36415; 93005; J0360

== ENCOUNTER → 2023-05-22 | Outpatient (CLI) | payer MEDICARE ==
--- NOTE | 2023-05-23 15:01 | MM ---
Reason for Exam: Screening (asymptomatic). Last mammogram was performed 2 year(s) and 1 month(s) ago. Patient History: Menarche at age 15. First Full-Term at age 27. Postmenopausal. Patient has history of breast feeding. Patient used Hormonal Contraceptives for 4 years. Risk Values: Katie 5 year model risk: 1.9%. NCI Lifetime model risk: 5.4%. Prior Study Comparison: 01/17/2017 Bilateral Screening Mammogram, [facility]. 01/28/2018 Bilateral Screening Mammogram, [facility]. 02/05/2019 Bilateral Screening Mammogram, [facility]. 03/02/2020 Bilateral Screening Mammogram, [facility]. 04/24/2021 Bilateral Screening Mammogram, [facility]. Tissue Density: There are scattered fibroglandular densities. Findings: Analyzed By CAD. There is no suspicious group of microcalcifications or new suspicious mass. Overall Assessment: Negative, BI-RAD 1 Management: Screening Mammogram of both breasts in [address] [facility] will attempt to contact patient to return for supplemental views and ultrasound if indicated. Patient should continue monthly self-breast exams. A clinical breast exam by your physician is recommended on an annual basis. This exam should not preclude additional follow-up of suspicious palpable abnormalities. Note on Katie scores and lifetime risk: 1. A Katie score greater than 3% is considered moderate risk. If this is the case, consider specialist referral to assess eligibility for a risk reducing agent. 2. If overall lifetime risk for the development of breast cancer is 20% or higher, the patient may qualify for future screening with alternating mammogram and breast MRI. Electronically signed and approved by: Gerry Olvera DO
--- NOTE | 2023-05-23 23:57 | BD ---
EXAMINATION TYPE: Axial Bone Density DATE OF EXAM: 05/22/2023 CLINICAL HISTORY: 73 years old Female. ICD-10 CODE: M81.0 OSTEOPOROSIS Height: 5 ft 4 in Weight: 185 FRAX RISK QUESTIONS: Alcohol (3 or more units per day): no Family History (Parent hip fracture): no Glucocorticoids (More than 3mos): no (Ex: prednisone, prednisolone, methylprednisolone, dexamethasone, and hydrocortisone). History of Fracture in Adulthood: no Secondary Osteoporosis: 1. Type 1 Diabetes: no 2. Hyperthyroidism: no 3. Menopause before 45: no 4. Malnutrition: no 5. Chronic liver disease: no Rheumatoid Arthritis: no Current Tobacco Use: no RISK FACTORS HISTORY OF: Surgery to Spine/Hip(right/left)/Wrist (right/left): no Family History of Osteoporosis: no Active: yes Diet low in dairy products/other sources of calcium: no Postmenopausal woman: yes Take estrogen and/or progesterone medications: no Lost more than 2 inches in height since high school: no Frequent falls: no Poor Health: good Hyperparathyroidism: no Adrenal Insufficiency: no MEDICATIONS: Additional Medications: blood pressure meds Additional History: EXAM MEASUREMENTS: Bone mineral densitometry was performed using the [employer] System. Bone mineral density as measured about the Lumbar spine is: ----- L1-L4(G/cm2): 1.343 T Score Values are as follows: ----- L1: 1.9 ----- L2: 1.5 ----- L3: 0.9 ----- L4: 1.2 ----- L1-L4: 1.4 Z Score Values are as follows: ----- L1: 2.9 ----- L2: 2.5 ----- L3: 1.9 ----- L4: 2.3 ----- L1-L4: 2.4 baseline Bone mineral density about the R hip (g/cm2): 1.024 Bone mineral density about the L hip (g/cm2): 0.979 T Score values are as follows: -----R Neck: -0.1 -----L Neck: -0.4 -----R Total: 0.1 -----L Total: 0.4 Z Score values are as follows: -----R Neck: 1.2 -----L Neck: 0.9 -----R Total: 1.2 -----L Total: 1.4 baseline FRAX%s: The graph provided illustrates a 7.5 % chance for a major osteoporotic fx and a 0.5 % chance for the hips probability for fx in 10 years time. IMPRESSION: Normal (Values between +1 and -1 indicate normal bone mass). Consider repeating this study in 5 year s or sooner if there is some new clinical indication. NOTE: T-SCORE=SD OF THE YOUNG ADULT MEAN.
== END | disposition home or self-care (01) ==
LOC: RADMAMWWP 10:53
PROVIDERS: ATTEND Internal Medicine Geriatric Medicine
DX: Z12.31 Encounter for screening mammogram for malignant neoplasm of breast (principal); M81.0 Age-related osteoporosis without current pathological fracture; Z78.0 Asymptomatic menopausal state
CPT/HCPCS: 77067; 77080